=== PATIENT | female | born 1940 | race Two or more races ===

== ENCOUNTER 2016-05-19 06:34 | Day surgery (SDC) | payer MEDICARE, OTHER ==
[2016-05-18 13:14] VITALS: BMI 22.0
[2016-05-19] VITALS (7 sets, daily range): BP systolic 94–166; BP diastolic 52–79; PULSE 82–90; RESP 14–20; Ht 157.5 cm; Wt 64.8 kg
[~2016-05-19] VITALS: Ht 157.5 cm; Wt 64.8 kg
[~2016-05-19 06:34] MED LIST: CYCLOPENTOLATE 2% 2 ML OPH OPER SCH; DICLOFENAC 0.1% 2.5 ML OPH OPER SCH; LACTATED RINGER'S 1,000 ML IV SCH; LIDOCAINE 3.5% GEL TUBE OPER ONE; MOXIFLOXACIN 0.5% 3 ML OPH OPER SCH; PHENYLephrine 10% 5 ML OPH OPER SCH; TETRACAINE 0.5% 4 ML OPH OPER SCH; TROPICAMIDE 1% 2 ML OPH OPER SCH
--- NOTE | 2016-05-19 07:05 | HPN ---
Date/Time of Note Date/Time of Note DATE: 05/19/16 TIME: 07:05 Interval H&P Admission Note Pt. seen H&P reviewed: No system changes NEETU CONNOLLY D.O. May 19, 2016 07:05
[2016-05-19] MEDS ORDERED: ONDANSETRON 4 MG INJ IV PRN (08:30)
[2016-05-19] MEDS ORDERED: ATEN-51 PO (08:37)
[2016-05-19] MEDS ORDERED: CELE100C PO (08:37)
[2016-05-19] MEDS ORDERED: AMLO-147 PO (08:37)
[2016-05-19] MEDS ORDERED: CRES10 PO (08:37)
[2016-05-19] MEDS ORDERED: METF-730 PO (08:37)
[2016-05-19] MEDS ORDERED: NA HYALURONATE/CHONDROITIN 0.5 ML SYG LEFT EYE ONE (08:48)
[2016-05-19] MEDS ORDERED: CARBACHOL 0.01% 1.5 ML OPH INJ IO ONE (08:48)
[2016-05-19] MEDS ORDERED: LIDOCAINE 2%/EPI (MDV) 20ML INJ INJ ONE (08:48)
[2016-05-19] MEDS ORDERED: TRYPAN BLUE 0.5 ML SYG IO ONE (09:00)
[2016-05-19] MEDS ORDERED: CARBACHOL 0.01% 1.5 ML OPH INJ ONE ×2 (09:01→09:02)
[2016-05-19] MEDS ORDERED: TOBRAMYCIN 0.3% 3.5 GM OPH OINT ONE (09:01)
[2016-05-19] MEDS ORDERED: EPINEPHrine 1 MG INJ ONE (09:01)
[2016-05-19] MEDS ORDERED: NA HYALURONATE/CHONDROITIN 0.5 ML SYG ONE (09:02)
[2016-05-19] MEDS ORDERED: FENTAnyl 50 MCG/ML VIAL ONE (09:08)
[2016-05-19] MEDS ORDERED: hydrALAzine 20 MG INJ ONE (09:15)
[2016-05-19] MEDS ORDERED: CEFAZOLIN 1 GM INJ ONE (09:16)
--- NOTE | 2016-05-20 13:32 | OPR ---
DATE OF OPERATION: 05/19/2016 SURGEON: Neetu Carrion DO ANESTHESIOLOGIST: Dr. Andrew M.D. PREOPERATIVE DIAGNOSIS: Cortical cataract left eye. POSTOPERATIVE DIAGNOSES: 1. Cortical cataract, Left eye. 2. Floppy iris syndrome, Left eye PLANNED PROCEDURE: Cataract extraction via phacoemulsification and intraocular lens implantation, left eye. OPERATION PERFORMED: Cataract extraction via phacoemulsification and intraocular lens implantation, left eye. Partial anterior vitrectomy. CONSENT: Patient was given risks, benefits, alternatives for cataract extraction and possible complications in detail. Patient understood that she has a high risk of complication based on her medical condition and understood that she can have infection, bleeding, loss of the lens, loss of the vitreous, loss of lens fragments, dislocation of lens, loss of of lens, hemorrhage, retinal detachment and loss of vision. Patient understood and decided that it was worth it to take a risk and signed consent which can be found in her chart. DESCRIPTION OF PROCEDURE: The patient was brought to the operating room in stable condition and placed on the operating table in supine position and her left eye was prepped in routine sterile technique for cataract surgery. A clear corneal incision was done with keratome. The patient was stopped followed by injection of lidocaine 4% with epinephrine and Viscoat material. Then the trypan blue dye was injected to stain anterior capsule and removed quickly with balanced salt solution. Then, capsulorrhexis was performed with cystotome and Utrata forceps. Then hydrodissection and delineation was done and nucleus rotated freely in an anterior chamber. Then the [place] chopper and phaco tip was inserted in anterior chamber and lens was divided into multiple pieces. Each of them was emulsified successfully, but posterior capsule tear was noted; therefore, additional Viscoat material was injected into posterior chamber and sulcus. An Jah model MN60AC 18.5 diopter lens was inserted into sulcus. The lens was then rotated with Sinskey hook and the remaining Viscoat material was removed via irrigation and aspiration with balanced salt solution. One 10-0 nylon suture was placed on the wound and TobraDex ointment was instilled into conjunctival sac and patch was placed over closed eyelid. The patient was transferred to recovery room in stable condition. Dictated By: NEETU KEMP/GORDY Conf#: [id number] DID#: [id number] [facility]ALTH[facility]
== END 2016-05-19 12:00 | disposition home or self-care (01) ==
LOC: SDS 06:34
PROVIDERS: ATTEND Ophthalmology
DX: H25.012 Cortical age-related cataract, left eye (principal); H21.81 Floppy iris syndrome; I10 Essential (primary) hypertension; E11.9 Type 2 diabetes mellitus without complications
CPT/HCPCS: 66984; 82962; J0171; J0360; J0690; J3010; V2630